=== PATIENT | female | born 1955 | race Caucasian/White ===

== ENCOUNTER → 2025-04-24 14:49 | Outpatient (CLI) | payer MEDICARE, SELFPAY | PROVIDERS: Referring Provider Orthopaedic Surgery Adult Reconstructive Orthopaedic Surgery; Visit Provider Orthopaedic Surgery Adult Reconstructive Orthopaedic Surgery | DX: Z96.642 Presence of left artificial hip joint (principal) | CPT/HCPCS: 36415; 82495; 83018; 85651; 86140 ==

== ENCOUNTER → 2025-06-04 14:55 | Outpatient (CLI) | payer MEDICARE, SELFPAY ==
--- NOTE | 2025-06-04 15:00 | DI.RAD.S_ITS ---
PROCEDURE: FL GUIDED ASPIRATION JOINT TECHNIQUE: Skin was marked. Skin was cleaned. Sterile drape was applied. Lidocaine in the skin in the soft tissues was administered. The needle was advanced to the hip arthroplasty. Aspiration was attempted. No fluid was acquired. Sterile saline was injected, 3 cc. Aspiration was repeated. Scant fluid was acquired in sent to the laboratory. COMPARISON: [facility], CR, ORTHO-XR HIP LT 2V, 04/24/2025, 13:40. INDICATIONS: Presence of left artifical hip joint FINDINGS: Left hip arthroplasty. No fluid was yielded with initial aspirations x2. Sterile saline was administered into the joint space and aspiration was performed. Scant blood tinged fluid was returned. IMPRESSION: Left hip arthroplasty joint aspiration. Scant fluid was returned. Dictated by: Aniket Logan M.D. on 06/04/2025 at 16:10 Approved by: Aniket Logan M.D. on 06/04/2025 at 16:29
[2025-06-04] MEDS: LIDOCAINE 1% 20 ML INJ (16:36)
== END ==
PROVIDERS: PCP Orthopaedic Surgery Adult Reconstructive Orthopaedic Surgery; Referring Provider Orthopaedic Surgery Adult Reconstructive Orthopaedic Surgery; Visit Provider Orthopaedic Surgery Adult Reconstructive Orthopaedic Surgery
DX: Z47.89 Encounter for other orthopedic aftercare (principal); Z96.642 Presence of left artificial hip joint
CPT/HCPCS: 20610; 77002; 87070; 87075; 87205